=== PATIENT | female | born 1995 | race Caucasian/White ===

== ENCOUNTER 2022-03-11 17:13 | Day surgery (SDC) | payer BC ==
[2022-03-11 17:57] VITALS: BMI 29.1
[2022-03-11] MEDS ORDERED: hydrALAZINE 20 MG/ML VIAL SLOW IVP PRN (18:30)
[2022-03-11 19:13] LABS: Bilirubin Neg (Negative); Blood, Urine Negative (Negative); Clarity Clear (Clear); Glucose, Urine (Dipstick) Normal (Negative); Ketone, Urine Negative (Negative); Leukocyte 500 (Negative); Nitrite Negative (Negative); Protein, Urine (Dipstick) Negative (Neg-Trace); Urobilinogen Normal mg/dL (Less than 2)
[2022-03-11 19:42] LABS: Bacteria/HPF 1+ HPF (None Seen); RBC/HPF 0-3 HPF (0-3)
== END 2022-03-11 20:13 | disposition home or self-care (01) ==
LOC: CSHLD/OP 17:13
PROVIDERS: ATTEND Obstetrics & Gynecology
DX: O99.891 Other specified diseases and conditions complicating pregnancy (principal); N89.8 Other specified noninflammatory disorders of vagina; Z3A.27 27 weeks gestation of pregnancy; Z88.1 Allergy status to other antibiotic agents; Z88.2 Allergy status to sulfonamides
CPT/HCPCS: 81001; 87480; 87510; 87660; 99285

== ENCOUNTER 2022-05-21 12:29 | Outpatient (CLI) | payer BC | END 2022-05-21 12:30 | disposition home or self-care (01) | LOC: CSHLAB 12:29 | PROVIDERS: ATTEND Obstetrics & Gynecology | DX: Z20.822 Contact with and (suspected) exposure to COVID-19 (principal) | CPT/HCPCS: 87811 ==

== ENCOUNTER 2022-05-24 23:00 | Inpatient (IN) | payer BC ==
[~2022-05-24 23:00] MED LIST: Acetaminophen 500 MG TAB PO PRN; Carboprost 250 MCG/ML AMP IM PRN; Diphenoxylate HCl/Atropine Tablet PO PRN; Docusate 100 MG CAP PO PRN; HYDROcodone/Acetaminophen 5/325 mg Tablet PO PRN; Ibuprofen 800 MG TAB PO PRN; Lactated Ringer's 1,000 ML IV SCH; Lidocaine 1% (PF) 30 ML VIAL SC PRN; Misoprostol 200 MCG TAB PR PRN; NS w/ Oxytocin 30 units 500 ML IV SCH; Ondansetron PF 4 MG/2 ML Vial IVP PRN; Promethazine HCl 25 MG/ML VIAL IM PRN; hydrALAZINE 20 MG/ML VIAL SLOW IVP PRN
[2022-05-25] MEDS ORDERED: Misoprostol 100 MCG TAB VAG SCH (06:00)
[2022-05-25 08:43] LABS: Mean Corpuscular Hemoglobin 28.7 pg (27.0-33.0); Mean Corpuscular Volume 87.1 fl (81.6-98.3); Mean Platelet Volume 10.1 fl (7.4-10.4); Platelet Count 337 10x3/uL (150-450); RBC Distribution Width 12.8 % (11.5-14.5); Red Blood Cell (RBC) Count 4.18 10x6/uL (3.90-5.03); White Blood Cell (WBC) Count 13.3 10x3/uL (3.5-10.5)
[2022-05-25 09:13] LABS: HBSAg Index 0.22 S/CO (0-0.99); Hep B Surf Ag Non-Reactive S/CO (NonReactive); Syphilis Antibody Nonreactive (Nonreactive); Syphilis Antibody Index 0.04 S/CO (<1.00 Non-Reactive)
[2022-05-25 15:09] VITALS: BMI 33.3
[2022-05-26 01:07] LABS: HIV (1/2) Antibody/Antigen Non-Reactive (NonReactive); HIV 1/2 INDEX 0.06 S/CO (<1.00)
[2022-05-26] MEDS ORDERED: Fentanyl 2 mcg/Bup 0.1% Cadd 100 ML ONE (05:11)
[2022-05-26] MEDS ORDERED: diphenhydrAMINE 50 MG/ML VIAL IVP PRN (05:50)
[2022-05-26] MEDS ORDERED: Ondansetron PF 4 MG/2 ML Vial IVP PRN ×2 (05:50→15:55)
[2022-05-26] MEDS ORDERED: Lactated Ringer's 500 ML IV PRN (05:50)
[2022-05-26] MEDS ORDERED: Moisturizing Cream (Eucerin) 113 GM JAR TOP PRN (05:50)
[2022-05-26] MEDS ORDERED: Naloxone HCl 0.4 mg/ml Vial IVP PRN ×2 (05:50)
[2022-05-26] MEDS ORDERED: Acetaminophen 325 MG TAB PO PRN (05:50)
[2022-05-26] MEDS ORDERED: Promethazine HCl 25 MG/ML VIAL IM PRN ×2 (05:50→15:55)
[2022-05-26] MEDS ORDERED: ePHEDrine Sulfate 50 MG/10 ML VIAL SLOW IVP PRN (05:50)
[2022-05-26] MEDS ORDERED: Fentanyl 2 mcg/Bupivacaine 0.1% Cassette 100 ML EPIDURAL SCH (06:00)
[2022-05-26] MEDS ORDERED: Communication Order-Pharmacy FS SCH (06:00)
[2022-05-26] MEDS ORDERED: ePHEDrine Sulfate 50 MG/10 ML VIAL ONE (08:00)
[2022-05-26] MEDS ORDERED: Fentanyl 100 MCG/2 ML VIAL ONE (11:42)
[2022-05-26] MEDS ORDERED: Misoprostol 200 MCG TAB VAG PRN (15:55)
[2022-05-26] MEDS ORDERED: Bisacodyl 10 MG SUPP PR PRN (15:55)
[2022-05-26] MEDS ORDERED: HYDROcodone/Acetaminophen 5/325 mg Tablet PO PRN (15:55)
[2022-05-26] MEDS ORDERED: Benzocaine-Menthol 82.5 ML CAN TOP PRN (15:55)
[2022-05-26] MEDS ORDERED: Preparation H Ointment 28 GM TUBE PR PRN (15:55)
[2022-05-26] MEDS ORDERED: hydrALAZINE 20 MG/ML VIAL SLOW IVP PRN (15:55)
[2022-05-26] MEDS ORDERED: diphenhydrAMINE 25 MG CAP PO PRN (15:55)
[2022-05-26] MEDS ORDERED: Milk Of Magnesia 30 ML UDCUP PO PRN (15:55)
[2022-05-26] MEDS ORDERED: Lanolin Ointment 7 GM TUBE TOP PRN (15:55)
[2022-05-26] MEDS ORDERED: Zolpidem Tartrate 5 MG TAB PO PRN (15:55)
[2022-05-26] MEDS: Ibuprofen 800 MG TAB PO SCH (17:42)
[2022-05-26] MEDS: Ferrous Sulfate 325 MG TAB PO SCH (18:51)
[2022-05-26] MEDS: Docusate 100 MG CAP PO SCH (21:13)
[2022-05-27] MEDS: Ibuprofen 800 MG TAB PO SCH ×7 (00:28→21:36)
[2022-05-27 05:02] LABS: Hemoglobin 9.6 g/dL (12.0-15.5); Mean Corpuscular HGB CONC 32.3 g/dL (32.0-36.0); Mean Corpuscular Hemoglobin 28.3 pg (27.0-33.0); Mean Corpuscular Volume 87.6 fl (81.6-98.3); Mean Platelet Volume 10.1 fl (7.4-10.4); Platelet Count 245 10x3/uL (150-450); RBC Distribution Width 13.2 % (11.5-14.5); Red Blood Cell (RBC) Count 3.39 10x6/uL (3.90-5.03); White Blood Cell (WBC) Count 17.9 10x3/uL (3.5-10.5)
[2022-05-27] MEDS: Docusate 100 MG CAP PO SCH ×2 (08:11→21:36)
[2022-05-27] MEDS: Prenatal Vitamin 1 TAB PO SCH (08:11)
[2022-05-27] MEDS: Ferrous Sulfate 325 MG TAB PO SCH ×2 (08:11→16:13)
[2022-05-27] MEDS ORDERED: FLUoxetine HCl 20 MG CAP PO SCH (12:45)
[2022-05-27] MEDS ORDERED: Measles/Mumps/Rubella 10 MCG/0.5 ML VIAL SC ONE (15:55)
[2022-05-27] MEDS ORDERED: Boostrix 0.5 ML (Tdap) VIAL (>/=7 yrs of age) IM ONE (15:55)
[2022-05-27] MEDS ORDERED: Varicella virus, LIVE 0.5 ML VIAL SC ONE (15:55)
[2022-05-28] MEDS: Ibuprofen 800 MG TAB PO SCH ×3 (06:45→21:06)
[2022-05-28] MEDS: Docusate 100 MG CAP PO SCH ×2 (09:45→21:06)
[2022-05-28] MEDS: Prenatal Vitamin 1 TAB PO SCH (09:45)
[2022-05-28] MEDS: Ferrous Sulfate 325 MG TAB PO SCH ×2 (09:45→17:09)
[2022-05-28] MEDS: FLUoxetine HCl 20 MG CAP PO SCH (09:45)
[2022-05-28] MEDS ORDERED: NIFEdipine XL 60 MG TAB PO SCH (12:00)
[2022-05-29] MEDS: Ibuprofen 800 MG TAB PO SCH (04:55)
[2022-05-29] MEDS: Prenatal Vitamin 1 TAB PO SCH (08:37)
[2022-05-29] MEDS: Ferrous Sulfate 325 MG TAB PO SCH (08:37)
[2022-05-29] MEDS: FLUoxetine HCl 20 MG CAP PO SCH (08:37)
[2022-05-29] MEDS: Docusate 100 MG CAP PO SCH (08:37)
[2022-05-29] MEDS ORDERED: NIFEdipine XL 60 MG TAB PO SCH (09:00)
[2022-05-29 10:07] VITALS: BP 130/79; TEMP 98.5
== END 2022-05-29 13:00 | disposition home or self-care (01) | DRG 807 ==
LOC: CSHLD 23:00 → UNDOADMIN 05-25 06:00 → CSHLD 05-25 06:00 → CSHPP 05-26 16:15
PROVIDERS: ADMIT Obstetrics & Gynecology; ATTEND Obstetrics & Gynecology
PROC: 3E0P7VZ Introduction of Hormone into Female Reproductive, Via Natural or Artificial Opening (ICD-10-PCS; 2022-05-24)
PROC: 10E0XZZ Delivery of Products of Conception, External Approach (ICD-10-PCS; principal; 2022-05-26)
DX: O10.92 Unspecified pre-existing hypertension complicating childbirth (principal); Z37.0 Single live birth; Z3A.38 38 weeks gestation of pregnancy; F32.A Depression, unspecified; F41.9 Anxiety disorder, unspecified; O99.344 Other mental disorders complicating childbirth; J30.2 Other seasonal allergic rhinitis; O99.52 Diseases of the respiratory system complicating childbirth; Z88.2 Allergy status to sulfonamides; Z88.8 Allergy status to other drugs, medicaments and biological substances; O70.0 First degree perineal laceration during delivery
CPT/HCPCS: 36415; 51702; 85027; 86780; 86850; 86900; 86901; 87340; 87389; J0595